=== PATIENT | female | born 1945 | race Caucasian/White ===

== ENCOUNTER → 2016-07-27 | Outpatient (CLI) | payer MEDICARE ==
--- NOTE | 2016-07-27 11:53 | RAD ---
DATE: 07/27/2016 EXAM: DIGITAL SCREEN BILAT W/CAD HISTORY: Screening COMPARISON: One year earlier This study was interpreted with the benefit of Computerized Aided Detection (CAD). FINDINGS: Breast Density: SCATTERED The breast parenchyma shows scattered fibroglandular densities. Breast parenchyma level B. There has been no significant change in the appearance of the breasts compared to the previous exam IMPRESSION: Benign findings BI-RADS CATEGORY: 2 BENIGN FINDING(S) RECOMMENDED FOLLOW-UP: 12M 12 MONTH FOLLOW-UP PQRS compliance statement: Patient information was entered into a reminder system with a target due date 07/27/2017 for the next mammogram. Mammography is a sensitive method for finding small breast cancers, but it does not detect them all and is not a substitute for careful clinical examination. A negative mammogram does not negate a clinically suspicious finding and should not result in delay in biopsying a clinically suspicious abnormality. "Our facility is accredited by the [employer] Mammography [employer]."
== END | disposition home or self-care (01) ==
LOC: MAMMO 10:30
PROVIDERS: ATTEND Family Medicine
DX: Z12.31 Encounter for screening mammogram for malignant neoplasm of breast (principal)
CPT/HCPCS: G0202; 77067

== ENCOUNTER → 2017-08-18 | Outpatient (CLI) | payer MEDICARE | END | disposition home or self-care (01) | LOC: MAMMO 08:27 | DX: Z12.31 Encounter for screening mammogram for malignant neoplasm of breast (principal) | CPT/HCPCS: 77063; 77067 ==

== ENCOUNTER → 2018-08-14 | Outpatient (CLI) | payer MEDICARE ==
--- NOTE | 2018-08-14 10:53 | RAD ---
DATE: 08/14/2018 EXAM: MAMMO NAOMI SCREENING BILATERAL HISTORY: Routine screening COMPARISON: 08/18/2017 This study was interpreted with the benefit of Computerized Aided Detection (CAD). Breast Density: SCATTERED The breast parenchyma shows scattered fibroglandular densities. Breast parenchyma level B. FINDINGS: 2-D and 3-D tomosynthesis imaging was performed in CC and MLO projections. No new or enlarging breast densities are seen. Benign type calcifications are present. No suspicious microcalcifications have developed. IMPRESSION: Stable mammograms without evidence of malignancy. BI-RADS CATEGORY: 2 BENIGN FINDING(S) RECOMMENDED FOLLOW-UP: 12M 12 MONTH FOLLOW-UP PQRS compliance statement: Patient information was entered into a reminder system with a target due date for the next mammogram. Mammography is a sensitive method for finding small breast cancers, but it does not detect them all and is not a substitute for careful clinical examination. A negative mammogram does not negate a clinically suspicious finding and should not result in delay in biopsying a clinically suspicious abnormality. "Our facility is accredited by the [employer] Mammography [employer]."
== END | disposition home or self-care (01) ==
LOC: MAMMO 09:58
PROVIDERS: ATTEND Family Medicine
DX: Z12.31 Encounter for screening mammogram for malignant neoplasm of breast (principal); N64.89 Other specified disorders of breast
CPT/HCPCS: 77063; 77067

== ENCOUNTER → 2019-08-15 | Outpatient (CLI) | payer MEDICARE ==
--- NOTE | 2019-08-15 13:28 | RAD ---
BILATERAL SCREENING MAMMOGRAM, 3-D History: Routine screening. Comparison: 07/03/2012, 07/08/2015, 07/27/2016, 08/18/2017, 08/14/2018 . Technique: MLO and CC digital tomosynthesis (3D) images obtained. Radiologist reviewed these images on dedicated workstation. Findings: Breast Tissue Density C : The breasts are heterogeneously dense, which may obscure small masses. There are no dominant masses, suspicious microcalcifications, or architectural distortion. IMPRESSION: No mammographic evidence of malignancy. Recommend routine screening. BI-RADS category 1: Negative. The images were reviewed with computer-aided detection. Patient information is entered into reminder system with a target due date for the next screening mammogram. Mammography is the most sensitive method for finding small breast cancers, but it does not detect them all and is not a substitute for careful clinical examination. A negative mammogram does not negate a clinically suspicious finding and should not result in delay in biopsying a clinically suspicious abnormality. "Our facility is accredited by the [employer] Mammography [employer]." Electronically signed by: Edilberto Flores MD (08/15/2019 1:25 PM) [facility]
== END | disposition home or self-care (01) ==
LOC: MAMMO 12:13
PROVIDERS: ATTEND Family Medicine
DX: Z12.31 Encounter for screening mammogram for malignant neoplasm of breast (principal)
CPT/HCPCS: 77063; 77067

== ENCOUNTER 2020-01-22 06:05 | Day surgery (SDC) | payer MEDICARE ==
[~2020-01-22] VITALS: Ht 172.7 cm; Wt 77.0 kg
[~2020-01-22 06:05] MED LIST: APIX5TAB PO; ASPI-630 PO; BENA10TA55 PO; CYAN100072 PO; FLEC100T PO; HYOS0.1279 PO; METO50TA6 PO; PRED2.5T PO; SIMV40TA18 PO; [UNRECOGNIZED DRUG - CODE] IO
[2020-01-22] MEDS ORDERED: MORPHINE SULFATE 2 MG/ML VIAL. IV PRN (07:00)
[2020-01-22] MEDS ORDERED: PROCHLORPERAZINE 10 MG/2 ML VIAL. IV PRN (07:00)
[2020-01-22] MEDS ORDERED: ONDANSETRON PF 4 MG/2 ML VIAL. IV PRN (07:00)
[2020-01-22] MEDS ORDERED: IV RINGERS,LACTATED 1000ML 1,000 ML IV SCH (07:00)
[2020-01-22] MEDS ORDERED: fentaNYL PF VIAL 100 MCG/2 ML VIAL IV PRN (07:00)
[2020-01-22] MEDS ORDERED: HYDROmorphone 2 MG/ML VIAL IV PRN (07:00)
[2020-01-22] MEDS ORDERED: LIDOCAINE 1%/EPI 1:100,000 20 ML VIAL. ONE (07:03)
[2020-01-22] MEDS ORDERED: fentaNYL PF VIAL 100 MCG/2 ML VIAL ONE ×2 (07:10→09:08)
[2020-01-22] MEDS ORDERED: DEXAMETHASONE SOD PHOS 4 MG/ML VIAL ONE ×2 (07:14→07:54)
[2020-01-22] MEDS ORDERED: PROPOFOL 10 MG/ML (20ML) VIAL. IV ONE (07:14)
[2020-01-22] MEDS ORDERED: PHENYLEPHRINE in 0.9% NACL PF 1 MG/10 ML SYRINGE. IV ONE (07:15)
[2020-01-22] MEDS ORDERED: BUPIVACAINE-EPI 0.5%-1:200000 MPF 30 ML VIAL. INJ ONE (07:15)
[2020-01-22] MEDS ORDERED: ONDANSETRON PF 4 MG/2 ML VIAL. ONE (07:54)
[2020-01-22] MEDS ORDERED: GLYCOPYRROLATE 1 MG/5 ML VIAL. ONE (07:54)
[2020-01-22] MEDS ORDERED: ePHEDrine PF IN SALINE 50 MG/10 ML SYRINGE. IV ONE (07:54)
[2020-01-22] MEDS ORDERED: SEVOFLURANE 61 TO 120 MINUTES. IH ONE (07:54)
[2020-01-22] MEDS ORDERED: LIDOCAINE 2% PF 5 ML VIAL. ONE (07:54)
--- NOTE | 2020-01-22 08:42 | PDOC4 ---
Operative Note Operative Note Operative Note: Preoperative Diagnosis: Right flank mass, right abdominal skin lesion x2 Postoperative Diagnosis: Same Procedure: Excision of right flank mass, 15 x 12 cm, excision of right abdominal skin lesion x2 Surgeon: Vinay Chrome Tanning Drum Operator: Campos ENCARNACION Anesthesia: General EBL: 10 mL Specimen: Right flank mass to pathology, right abdominal skin lesion x2 to pathology Drains: None Complications: None Indication: The patient is a 74-year-old female who was referred due to an enlarging right flank mass. It appears sizable and consistent with a lipoma. In addition she has several seborrheic keratosis and requests excision of the 2 larger ones. The risks of surgery were discussed which include bleeding, infection, recurrence, pain, anesthetic risk, potential need for additional surgery procedure. She understands and would like to proceed. Description: The patient was taken to the operating room and placed supine in the operating table. General anesthesia was performed. She was then placed with her left side down exposing the right abdomen and flank. The abdomen was prepped with ChloraPrep and draped in a standard surgical manner. An incision was made directly overlying the large subcutaneous mass. Cautery dissection was carried down into the subcutaneous tissues. The mass was comprised of lobulated adipose tissue consistent with a large lipoma. With primarily blunt dissection the mass was freed from the surrounding tissues and fully excised. The mass measured 15 x 12 cm and was sent to pathology for evaluation. Several small bleeding spots were controlled with cautery. Hemostasis was then good. The subcutaneous tissue was approximated with 3-0 Vicryl and skin closed with 4-0 Monocryl. Two skin lesions of the right abdomen were selected for excision. For both of them elliptical incisions were made using a scalpel. Cautery dissection was used for excision of the skin lesions both of which appeared to be seborrheic keratoses. Both were sent to pathology. Both of the excised specimens measured approximately 3 x 1-1/2 cm. Hemostasis was achieved with cautery. At both locations the subcutaneous tissue was closed with 3-0 Vicryl and skin approximated with 4-0 Monocryl. Steri-Strips and sterile dressings were applied. The patient tolerated the procedure well and was sent to the recovery room in stable condition. At the end of the case all counts were correct. KELLY ENG MD Jan 22, 2020 08:42
--- NOTE | 2020-01-22 08:45 | DISCH ---
DISCHARGE INSTRUCTIONS Condition on Discharge Condition on Discharge: Stable Activity After Discharge Activity Instructions for Disc: Activity as tolerated Diet after Discharge Diet after Discharge: Regular Wound Incision Care Wound/Incision Care: Other, see below (keep dressings clean and dry X 72 hours, may then remove and shower) Follow-Up Follow up with: Dr Eng in office in 2 weeks, call for appt [phone] KELLY ENG MD Jan 22, 2020 08:45
[2020-01-22] MEDS: fentaNYL PF VIAL 100 MCG/2 ML VIAL IV PRN ×2 (09:11→09:32)
[2020-01-22] MEDS ORDERED: HYDR-3164 PO (09:13)
[2020-01-22] MEDS ORDERED: HYDROcodone/APAP 5/325MG 1 TAB TABLET PO ONE (09:15)
[2020-01-22 09:46] VITALS: BP 108/47
--- NOTE | 2020-01-25 10:07 | PATHOLOGY ---
[facility] Accession Number: [id number] . 01 Material submitted: . PART A: flank - RIGHT FLANK MASS. Modifiers: right PART B: abdomen - RIGHT ABDOMINAL SKIN LESION. Modifiers: right PART C: abdomen - RIGHT ABDOMINAL SKIN LESION #2. Modifiers: right, 2 . 01 Clinical history: . FLANK MASS AND SKIN LESIONS . 02 Diagnosis: A. Segments of adipose tissue, right flank mass: - Lipoma. . B. Skin and subcutaneous tissue, right abdominal skin lesion #1, excision: - Seborrheic keratosis. . C. Skin and subcutaneous tissue, right abdominal skin lesion #2, excision: - Seborrheic keratosis. . ([place]:deven; 01/24/2020) [facility] 01/24/2020 1646 Local . 02 Comment: There is no evidence of malignancy. ([place]IANAM:deven; 01/24/2020) . 02 Electronically signed: . Andrea Romero MD, Pathologist NPI- [id number] . 01 Gross description: . A. The specimen is received in formalin, labeled "Jaclyn Vásquez, right flank mass". Received are multiple segments of yellow-walker lobulated tissue measuring 18.4 x 13.8 x 4.3 cm in aggregate dimensions. Sectioning reveals bright yellow cut surfaces with no grossly distinct nodules or lesions. The specimen is submitted representatively in cassette A1 through A3. . B. The specimen is received in formalin, labeled "Jaclyn Vásquez, right abdominal skin lesion". Received is an ellipse of skin measuring 3.1 x 1.6 x 1.0 cm in greatest dimensions. The epidermal surface displays a well-circumscribed, raised fvr-[id number]-[id number] lesion measuring 1.9 x 1.3 x 0.4 cm. The surgical margin is inked. The specimen is sectioned into 11 pieces and entirely submitted in cassettes B1 through B4, with the bisected tips placed in cassette B4. . C. The specimen is received in formalin, labeled "Jaclyn Vásquez, right abdominal skin lesion #2". Received is an ellipse of skin measuring 3.5 x 1.8 x 1.6 cm in greatest dimensions. The epidermal surface displays a well-circumscribed, raised and muñoz-walker lesion measuring 1.9 x 1.8 x 0.5 cm. The surgical margin is inked. The specimen is sectioned into 11 pieces and entirely submitted in cassettes C1 through C6, with the bisected tips placed in cassette C6. (CAA; 01/23/2020) QAC/QAC 01/23/2020 1825 Local . 02 Pathologist provided ICD-10: D17.1, L82.1 . 02 CPT . 509076, 211796, 479913 Specimen Comment: A courtesy copy of this report has been sent to [phone], [phone] Specimen Comment: [id number] Specimen Comment: Report sent to / DR PINEDA Performed at: 01 [facility] [place] [address], [place], [place] [id number] MD Rahul Mendoza MD Phone: [phone] Performed at: 02 [facility] [address], [place] [id number] MD Andrea Romero MD Phone: [phone]
== END 2020-01-22 10:15 | disposition home or self-care (01) ==
LOC: SURG 06:05
PROVIDERS: ATTEND Surgery
DX: R19.03 Right lower quadrant abdominal swelling, mass and lump (principal); I10 Essential (primary) hypertension; E78.00 Pure hypercholesterolemia, unspecified; I48.91 Unspecified atrial fibrillation; K21.9 Gastro-esophageal reflux disease without esophagitis; M19.90 Unspecified osteoarthritis, unspecified site; Z90.710 Acquired absence of both cervix and uterus; Z98.890 Other specified postprocedural states; Z90.49 Acquired absence of other specified parts of digestive tract; Z79.899 Other long term (current) drug therapy; Z88.8 Allergy status to other drugs, medicaments and biological substances
CPT/HCPCS: 21931; 88304; 88305; A7015; J0690; J1100; J2370; J2405; J2704; J3010; J3490

== ENCOUNTER → 2020-09-02 | Outpatient (CLI) | payer MEDICARE ==
[~2020-09-02] MED LIST changes: +HYDR-3164 PO
--- NOTE | 2020-09-02 16:04 | RAD ---
EXAM: BILATERAL DIGITAL 3D SCREENING MAMMOGRAPHY. HISTORY: Routine mammographic screening. TECHNIQUE: Bilateral digital 3D and tomographic images were obtained in CC and MLO projections. Compu ter-aided detection was applied. COMPARISON: 08/15/2019. COMPOSITION: C. The breasts are heterogeneously dense, which may obscure small masses. FINDINGS: There are no suspicious masses, microcalcifications or architectural distortion. The parenc hymal pattern is stable. Scattered, vascular and coarse calcifications are benign. A pacemaker is par tially visualized on the left. BI-RADS CATEGORY 2: Benign. RECOMMENDATION: 1. Routine screening mammography in one year. If mammography demonstrates dense breast tissue (heterogenously dense or extremely dense, category C or D), which could hide abnormalities, and if other risk factors for breast cancer have been identifi ed, supplemental screening tests that may be suggested by the ordering physician may be of benefit. D ense breast tissue, in and of itself, is a relatively common condition. Therefore, this information i s not provided to cause undue concern, but rather to raise awareness and to promote discussion with t he referring physician regarding the presence of other risk factors, in addition to dense breast tiss ue. The results of this mammography examination is provided to the patient and referring physician. T he patient should contact their referring physician if any questions or concerns exist regarding this report. PQRS compliance statement - Patient information was entered into a reminder system with a target due date for the next mammogram. "Our facility is accredited by the [employer] Mammography Program." Electronically signed by: Jennifer Olsen MD (09/02/2020 4:02 PM) [email or web address]
== END ==
LOC: MAMMO 10:48
PROVIDERS: ATTEND Family Medicine
DX: Z12.31 Encounter for screening mammogram for malignant neoplasm of breast (principal)
CPT/HCPCS: 77063; 77067